=== PATIENT | male | born 1960 | race Caucasian/White ===

== ENCOUNTER 2018-10-09 00:57 | Outpatient (CLI) | payer MEDICAID, SELFPAY ==
--- NOTE | 2018-10-09 09:13 | DI.RAD_ITS ---
SYMPTOM/DIAGNOSIS: PAIN RT SHOULDER, M25.511 RIGHT SHOULDER: Five views were obtained. There are mild hypertrophic degenerative changes of the glenohumeral and acromioclavicular joints. There are soft tissue calcifications which appear to be associated with infraspinatus attachment on the humerus consistent with calcific peritendinitis. No other focal abnormality is seen.
== END 2018-10-09 01:17 ==
PROVIDERS: PCP Internal Medicine; Visit Provider Nurse Practitioner
DX: M25.511 Pain in right shoulder (principal); M19.011 Primary osteoarthritis, right shoulder
CPT/HCPCS: 73030

== ENCOUNTER 2018-11-13 08:46 | Outpatient (REF) | payer MEDICAID, SELFPAY ==
[2018-11-13 14:20] LABS: ALT 44 U/L (12-78); AST 23 U/L (15-37); Albumin 4.4 g/dL (3.4-5.0); Alkaline Phosphatase 80 U/L (46-116); Anion Gap 8.9 mmol/L (3-11); BUN 16 mg/dL (7-18); Bilirubin, Total 0.7 mg/dL (0.2-1.0); CO2 29.1 mmol/L (21.0-32.0); CREATININE 1.03 mg/dL (0.70-1.30); Calcium 9.8 mg/dL (8.5-10.1); Chloride 103 mmol/L (98-107); Cholesterol 213 mg/dL (50-200); Glucose 103 mg/dL (70-100); HDL Cholesterol 81 mg/dL (40-60); LDL CHOLESTEROL 113 mg/dL (<100); Potassium 4.9 mmol/L (3.5-5.1); Sodium 141 mmol/L (136-145); Total Protein 7.8 g/dL (6.4-8.2); Triglyceride 105 mg/dL (30-150)
== END 2018-11-13 09:06 ==
LOC: NCHCN 08:46
PROVIDERS: PCP Internal Medicine; Visit Provider Nurse Practitioner Family
DX: I10 Essential (primary) hypertension (principal); E78.5 Hyperlipidemia, unspecified
CPT/HCPCS: 80053; 80061; 83721

== ENCOUNTER 2018-12-14 11:01 | Outpatient (CLI) | payer MEDICAID, SELFPAY ==
--- NOTE | 2018-12-14 10:57 | DI.RAD_ITS ---
SYMPTOM/DIAGNOSIS: RT HEEL PAIN CALCANEUS: Two views. No priors. No acute or healing fracture, dislocation fracture seen. There is a tiny enthesophyte at the insertion site of the Achilles tendon. There is a tiny osteophyte at the plantar surface of the calcaneus. The bones are normally mineralized. The soft tissues are unremarkable. IMPRESSION: No acute abnormality.
== END 2018-12-14 11:21 ==
PROVIDERS: PCP Internal Medicine; Visit Provider Physician Assistant
DX: M79.671 Pain in right foot (principal); M77.31 Calcaneal spur, right foot
CPT/HCPCS: 73650

== ENCOUNTER 2020-01-14 11:15 | Outpatient (REF) | payer MEDICAID, SELFPAY ==
[2020-01-14 21:41] LABS: ALT 26 U/L (16-63); AST 26 U/L (15-37); Albumin 3.8 g/dL (3.4-5.0); Alkaline Phosphatase 67 U/L (46-116); Anion Gap 6.9 mmol/L (3-11); BUN 12 mg/dL (7-18); Bilirubin, Total 0.3 mg/dL (0.2-1.0); CO2 30.1 mmol/L (21.0-32.0); CREATININE 0.73 mg/dL (0.70-1.30); Calcium 9.2 mg/dL (8.5-10.1); Calculated LDL 129 mg/dL (<100); Chloride 102 mmol/L (98-107); Cholesterol 234 mg/dL (<200); Glucose 83 mg/dL (74-106); HDL Cholesterol 96 mg/dL (40-60); Potassium 4.2 mmol/L (3.5-5.1); Sodium 139 mmol/L (136-145); Total Protein 6.8 g/dL (6.4-8.2); Triglyceride 46 mg/dL (<150)
[2020-01-16 08:43] LABS: PSA, Screening <0.1 ng/mL (0.0-3.5)
== END 2020-01-14 11:35 ==
LOC: NCHCN 11:15
PROVIDERS: PCP Internal Medicine; Visit Provider Internal Medicine
DX: E78.5 Hyperlipidemia, unspecified (principal); I10 Essential (primary) hypertension; Z12.5 Encounter for screening for malignant neoplasm of prostate
CPT/HCPCS: 80053; 80061; 84153

== ENCOUNTER 2021-06-24 16:55 | Outpatient (REF) | payer MEDICAID, SELFPAY ==
[2021-06-24 22:37] LABS: ALT 38 U/L (16-63); AST 25 U/L (15-37); Albumin 3.9 g/dL (3.4-5.0); Alkaline Phosphatase 69 U/L (46-116); Anion Gap 9.3 mmol/L (3-11); BUN 17 mg/dL (7-18); Bilirubin, Total 0.4 mg/dL (0.2-1.0); CO2 26.7 mmol/L (21.0-32.0); Calcium 9.2 mg/dL (8.5-10.1); Chloride 105 mmol/L (98-107); Glucose 97 mg/dL (74-106); Sodium 141 mmol/L (136-145)
[2021-06-26 10:25] LABS: Hepatitis C Ab w Rflx HCV PCR Negative (Negative)
[2021-06-26 10:50] LABS: HIV-1/2 Ag & Ab Screen Negative (Negative)
== END 2021-06-24 16:56 | disposition home or self-care (01) ==
LOC: NCHCN 16:55
PROVIDERS: PCP Internal Medicine; Visit Provider Family Medicine
DX: Z11.4 Encounter for screening for human immunodeficiency virus [HIV] (principal); Z11.59 Encounter for screening for other viral diseases; I10 Essential (primary) hypertension; Z00.00 Encounter for general adult medical examination without abnormal findings
CPT/HCPCS: 80053; 86803; 87389

== ENCOUNTER 2021-07-22 03:02 | Outpatient (CLI) | payer MEDICAID, SELFPAY ==
[2021-07-22 12:16] LABS: Source Nasal/Nares
[2021-07-22 17:28] LABS: COVID-19 PCR Negative (Negative)
== END 2021-07-22 03:03 | disposition home or self-care (01) ==
LOC: LBO 03:02
PROVIDERS: PCP Internal Medicine; Visit Provider Ophthalmology
DX: Z20.822 Contact with and (suspected) exposure to COVID-19 (principal); Z01.818 Encounter for other preprocedural examination
CPT/HCPCS: 87635

== ENCOUNTER 2021-07-24 07:33 | Day surgery (SDC) | payer MEDICAID, SELFPAY ==
[2021-07-24 07:50] VITALS: BP 127/77; PULSE 63; RESP 16; TEMP 36.2; O2SAT 97
[2021-07-24] MEDS: Tropicam./Phenyleph. (1/2.5%) 5 ML BTL OS ×3 (08:08→08:20)
--- NOTE | 2021-07-24 08:36 | W.ANESPRE ---
General Info Date of Service Date Performed: 07/24/21 Height: 5 ft 7 in Weight: 97.1 kg Body Mass Index (BMI): 33.5 Surgical Procedure: Operation Date: 07/24/21 09:40 Proposed Procedures Side Surgeon p Cataract Extraction with IOL Implant Left Robin Collier MD Meds Allergies and Home Medications Allergies Allergy/AdvReac Type Severity Reaction Status Date / Time gabapentin Allergy Mild unknown Verified 07/24/21 08:12 Home Medication Medication Instructions Recorded lisinopril 10 mg PO HS 09/23/14 aspirin 81 mg tablet,delayed 81 mg PO DAILY 11/25/20 release psyllium seed (sugar) oral powder 1 tbsp PO DAILY PRN 11/25/20 rosuvastatin 20 mg tablet 20 mg PO DAILY 11/25/20 Current Visit Medications: Current Medications Generic Name Dose Route Start Last Admin Trade Name Freq PRN Reason Stop Dose Admin Acetaminophen 1,000 mg 07/24/21 06:00 Acetaminophen 500 Mg Tab PO Q4H PRN PRN Miscellaneous Medication 0 ml 07/24/21 06:00 Prednisolone 1%, Moxifloxacin 0.5%, Nepafenac 0.1% 5ml Btl OS DIRECTED MADHU Miscellaneous Medication 0 ml 07/24/21 06:00 07/24/21 08:20 Tropicam./Phenyleph. (1/2.5%) 5 Ml Btl OS 1 drp DIRECTED MADHU Administration Tetracaine HCl 0 ml 07/24/21 06:00 Tetracaine 0.5% 4 Ml Btl OS DIRECTED MADHU PFSH Active Problems Active Problems: Problem Status Onset Code Calcific tendonitis of right shoulder M75.31 Lateral epicondylitis, right elbow M77.11 Screening for colon cancer Z12.11 Anxiety F41.9 Hyperlipidemia E78.5 Medical History Medical History Alcohol abuse, in remission HTN (hypertension) Spondylolisthesis Stenosis, spinal, lumbar Surgical History Surgical History (Updated 07/24/21 @ 08:12 by Reena Anaya) Amputation revision (08/30/13) RMF, RRF Hx of spinal fusion Tobacco Smoking/Tobacco Use Status: Former Tobacco Use Alcohol Alcohol Intake: former Substance Use Substance use: Never Substance use type: does not use Vital Signs and Lab Results Vital Signs Most Recent Vital Signs in EMR: Most Recent Vital Signs Temp Pulse Resp BP Pulse Ox 36.2 C L 63 16 127/77 97 07/24/21 07:50 07/24/21 07:50 07/24/21 07:50 07/24/21 07:50 07/24/21 07:50 Lab Results Blood Type / Crossmatch: No Data to Display Complete Blood Count: No Data to Display Complete Metabolic Panel: Sodium Level 141 mmol/L (136-145) 06/24/21 16:25 06/24/21 Potassium Level 4.0 mmol/L (3.5-5.1) 06/24/21 16:25 06/24/21 Chloride Level 105 mmol/L (98-107) 06/24/21 16:25 06/24/21 Carbon Dioxide Level 26.7 mmol/L (21.0-32.0) 06/24/21 16:25 06/24/21 Blood Urea Nitrogen 17 mg/dL (7-18) 06/24/21 16:25 06/24/21 Creatinine 1.0 mg/dL (0.70-1.30) 06/24/21 16:25 06/24/21 Estimated GFR/1.73 m2 >= 60.00 (mL/min/1.73m2) 06/24/21 16:25 06/24/21 Calcium Level 9.2 mg/dL (8.5-10.1) 06/24/21 16:25 06/24/21 Albumin 3.9 g/dL (3.4-5.0) 06/24/21 16:25 06/24/21 Glucose Level 97 mg/dL (74-106) 06/24/21 16:25 06/24/21 Liver Function Panel: Alanine Aminotransferase (ALT/SGPT) 38 U/L (16-63) 06/24/21 16:25 06/24/21 Aspartate Amino Transf (AST/SGOT) 25 U/L (15-37) 06/24/21 16:25 06/24/21 Coagulation Panel: No Data to Display Cardiac Panel: No Data to Display Arterial Blood Gas: No Data to Display Venous Blood Gas: No Data to Display Pancreas Panel: No Data to Display Thyroid Panel: No Data to Display Infectious Disease: Coronavirus (COVID-19)(PCR) Negative (Negative) 07/22/21 09:30 07/22/21 Coronavirus 2019 Source Nasal/Nares 07/22/21 09:30 07/22/21 HIV (1&2) Ag and Ab, 4th Generation Negative (Negative) 06/24/21 16:25 06/24/21 Hepatitis C Antibody Negative (Negative) 06/24/21 16:25 06/24/21 Blood Cultures: No Data to Display Toxicology Panel: No Data to Display Anesthesia Assessment and Plan Anesthesia History Personal History: No History of Anesthesia Complications Family History: No Family History of Anesthesia Complications Exercise Tolerance Exercise Tolerance: Metabolic Equivalents>4 Pertinent Negatives Pertinent Negatives: No Symptoms of GERD Cardiac & Pulmonary Exam Cardiac Exam: Normal S1/S2 Heart Sounds Pulmonary Exam: Clear Bilateral Breath Sounds Implantable Cardiac Device Does patient have a Pacemaker or an ICD?: No Airway Exam Known Difficult Airway: No Mallampati Class: 2 Mouth Opening: Normal (> 3cm) Thyromental Distance: Greater than 3 cm Neck Range of Motion: Full ROM Neck Circumference: Normal Teeth Condition: Normal Dentition ASA Classification ASA Score: ASA 2 Emergency Case?: No NPO Status NPO Status: NPO Clears >2 hours, Solids >8 hours Anesthesia Plan Resuscitation Status: Full Code Anesthesia Technique: MAC Anesthesia Airway Planned: Natural Airway Monitors Used: Standard Monitors
[2021-07-24 09:00] VITALS: BMI 33.5
[2021-07-24] MEDS: Povidone-Iodine Ophth 30 ML BTL (09:16)
[2021-07-24] MEDS: Tetracaine 0.5% 4 ML BTL OS (09:17)
[2021-07-24] MEDS: Lidocaine 2% Jelly 6 ML SYR (09:18)
[2021-07-24] MEDS: Duovisc Viscoelastic System EACH 1 EACH (09:25)
[2021-07-24] MEDS: Balanced Salt Soln.-PLUS 500 ML BAG (09:25)
[2021-07-24] MEDS: Trypan Blue 0.06% 0.5 ML SYR (09:32)
[2021-07-24 09:50] VITALS: BP 136/69; PULSE 51; RESP 18; TEMP 36.3; O2SAT 98
--- NOTE | 2021-07-24 09:50 | W.PM.DSUDISC ---
Discharge Plan Disposition Patient Disposition: HOME Condition: Good Discharge Details Attending Provider: Robin Collier Primary Care Provider: Freddy Vazquez Home Meds and New Rx's Prescriptions: No Action aspirin [Adult Aspirin Regimen] 81 mg tablet,delayed release (DR/EC) 81 mg PO DAILY RF: 0 rosuvastatin 20 mg tablet 20 mg PO DAILY RF: 0 Metamucil (sugar) Powder 1 tbsp PO DAILY PRNRF: 0 lisinopril 10 MG tablet 10 mg PO HS RF: 0 Discharge Instructions Stand Alone Forms: Post-op Topical Cataract, Severino Holcomb (DSU) Discharge Orders Discharge Orders: Discharge Order (Routine); Ordered 07/24/21 Ordered By: Robin Collier DS: Diagnosis Discharge Diagnosis (1) Posterior subcapsular age-related cataract of left eye: Status: Resolved (2) Nuclear sclerotic cataract of left eye: Status: Resolved
--- NOTE | 2021-07-24 09:54 | W.PM.OP ---
Date of service: 07/24/21 Time of Service: 09:54 Operative Note Operative Note DATE OF PROCEDURE: 07/24/21 PRE-OP DIAGNOSIS: Nuclear/posterior subcapsular cataract, left eye For red reflex, left eye secondary to cataract POST-OP DIAGNOSIS: same PROCEDURE: Cataract extraction using phacoemulsification with intraocular lens implant, left eye, using capsular staining with Vision Blue SURGEON: Robin Collier ANESTHESIA TYPE: Local By Surgeon and MAC Refer to Anesthesia Record COMPLICATIONS: None Patient was transported to: same day Patient's condition: stable Implants: Anshu and Anshu / [employer] Tecnis [id number] Indications: Progressive decreased vision due to cataract, left eye, with poor red reflex Procedure Description: CATARACT SURGERY OPERATIVE REPORT PREOPERATIVE DIAGNOSIS: 1. Nuclear/posterior subcapsular cataract, left eye 2. Poor red reflex secondary to #1 POSTOPERATIVE DIAGNOSIS: Same OPERATION: 1. Cataract extraction using phacoemulsification with posterior chamber intraocular lens implant, left eye. 2. Capsular staining with Vision Blue IOL: IOL Manager Office Services/Model: Anshu & Anshu / VIOLET Tecnis [id number] IOL Power: + 20.5 diopters IOL Serial Number: [id number] Optic Diameter: 6.0 mm Haptic/Overall Diameter: 13.0 mm PHACO INFO: Javad Jaxtrurion Vision System with OZil and Active Fluidics Cumulative Dispersed Energy (CDE): 12.58 seconds SURGEON: Robin Collier MD, MICHAEL ANESTHESIA: Monitored A [facility] (MAC), with local sub-tenon's anesthetic infiltration COMPLICATIONS: None SPECIMENS: None INDICATIONS FOR PROCEDURE: The patient is a 61-year-old gentleman with history of progressive decreased vision in his left eye. He is noted to have a significant nuclear and posterior subcapsular cataract with visual acuity of 20/300. The option of cataract surgery was offered to the patient and he felt he was symptomatic enough that he wished to proceed. PROCEDURE: The correct surgical eye was identified and marked as the left eye and the pupil was dilated in the preoperative area using mydriatics and cycloplegics. The dilated pupil size was 7.0 mm. He elected to proceed without sedation. The patient was brought to the operating room where cardiopulmonary monitoring was instituted and surgical time-out was performed, confirming the correct operative eye and IOL power. Topical anesthesia was administered and ophthalmic povidone-iodine 5% was instilled into the conjunctival fornices. Lidocaine gel was applied to the cornea and the jen-ocular area was prepped with Betadine 10% solution and draped in the usual sterile fashion for intraocular surgery, including an aperture drape. A Tegaderm transparent film dressing was cut in half and used to cover the lashes and lid margins. Care was taken to sequester the lashes and lid margins under the Tegaderm dressing. A lid speculum was placed between the lids of the operative eye and the Vandana-Shirin operating microscope was maneuvered into position. Christa scissors were then used to make a conjunctival buttonhole approximately 6mm posterior to the limbus in the inferonasal quadrant. Blunt dissection was carried out to expose bare sclera, and a blunt-tipped sub-tenon?s anesthesia cannula was introduced and passed posteriorly along the globe where non-preserved plain lidocaine was injected into posterior sub-Tenon?s space. A sideport knife was used to make a paracentesis port superiorly/superiortemporally. Intraocular phenylephrine/lidocaine was injected int the anterior chamber.. Air was then injected into the anterior chamber, followed by Vision Blue, which was painted over the anterior capsule and then irrigated out using BSS. The anterior chamber was filled with viscoelastic. A 2.4mm keratome knife was used to create a half-thickness groove at the limbus and then to construct a three-plane near-clear corneal tunnel extending 2.0mm into clear cornea at the 3:00 position. A flap was raised on the anterior capsule and capsulorhexis forceps were used to complete a continuous curvilinear capsulorhexis of 4.8 mm. Balanced salt solution was then used to perform cortical cleaving hydrodissection and nuclear hydrodelineation until the lens could be freely rotated within the capsular bag. The lens nucleus was then disassembled and removed within the capsular bag and iris plane using phacoemulsification. Residual cortical material was removed using the 45-degree angled silicone I/A tip with 0.3mm port. The posterior capsule was carefully polished to remove as much residual lens epithelial cells as safely possible. The capsular bag was then inflated and the anterior chamber deepened with viscoelastic. The lens implant described above was inserted into the capsular bag using the VIOLET [place] Injector. A Kuglen hook was used to dial the IOL into position. Residual viscoelastic was then removed first from posterior to the IOL, then from the anterior chamber using the I/A handpiece. The lens implant was noted to center nicely within the capsular bag. The incisions were stromally hydrated, and the anterior chamber was reformed using BSS. Then 0.5cc of moxifloxacin 1.0mg/ml were injected into the capsular bag and anterior chamber. The incisions were checked with a Weck spear and found to be secure. Several drops of ophthalmic povidone-iodine 5% were then applied to the eye followed by two drops of Imprimis combination prednisolone/moxifloxacin/nepafenac solution. The drapes were removed and a clear plastic protective eye shield was placed over the eye. The patient was then returned to Same Day Surgery in stable condition.
--- NOTE | 2021-07-24 10:29 | W.ANESPOSTOP ---
Postoperative Evaluation Date, Time and Location Date Performed: 07/24/21 Time Performed: 10:00 Patient Location: Day Surgery Unit Vital Signs Most Recent Imported Vital Signs: Most Recent Vital Signs Temp Pulse Resp BP Pulse Ox 36.3 C L 51 L 18 136/69 98 07/24/21 09:50 07/24/21 09:50 07/24/21 09:50 07/24/21 09:50 07/24/21 09:50 Pain Score Most Recent Pain Score: Most Recent Pain Score Pain Level 0 07/24/21 09:50 Assessment Mental Status: Awake (Alert & Oriented to Patient Baseline) Airway and Respiratory Function: Patent airway with normal (patient baseline) respiratory exam Cardiovascular Function: Hemodynamically Stable Hydration Status: Adequately Hydrated Nausea & Vomiting: No Nausea or Vomiting Pain: Pt. Denies Any Pain Peripheral Nerve Block: Patient did not receive a nerve block
== END 2021-07-24 10:35 | disposition home or self-care (01) ==
PROVIDERS: PCP Internal Medicine; Visit Provider Ophthalmology
PROC: (CPT 66984; principal; 2021-07-24 09:30)
DX: H25.042 Posterior subcapsular polar age-related cataract, left eye (principal); I10 Essential (primary) hypertension; E78.5 Hyperlipidemia, unspecified; Z87.891 Personal history of nicotine dependence
CPT/HCPCS: 66984; V2632

== ENCOUNTER 2021-12-21 09:18 | Day surgery (SDC) | payer MEDICAID, SELFPAY ==
--- NOTE | 2021-12-21 06:50 | W.COLOREPORT ---
Colonoscopy Report Date of procedure: 12/21/21 Pre-op diagnosis general: Colon Cancer screening Post-op diagnosis procedure note: same Procedure: Colonoscopy Surgeon: Thelma Jackson Anesthesia Type: General:No Airway Estimated blood loss (mL): 0 Pathology: none sent Complications: None Disposition: same day Indications: The patient is here for Colonoscopy pre-op. His last screening was in 2010 and was unremarkable. He has no family history of colon cancer. He has not had any bowel habit changes. -Discussed colonoscopy bowel prep as well as the procedure. Discussed possible complications of the procedure to include bleeding, pain, perforation, missed small lesion/polyp, sore throat, aspiration and adverse reaction to the medications. Questions were answered to patient?s satisfaction. No guarantees were implied or given.? Prep: Miralax/Dulcolax Procedure Start Time: 10:23 Procedure End Time: 10:42 Retraction Time: 9 minutes Findings: Normal colonoscopy Procedure Description: After informed consent was obtained the patient was taken to the procedure room and placed in a left decubitous position. Monitors were applied and a time out was done. The patients name, date of , procedure, allergies to medications and metal in their body was reviewed. The patient was then sedated. Once sedated and comfortable a rectal exam was done. External exam was normal. Internal exam revealed a normal sphincter tone and no palpable masses. The prostate felt smooth. The scope was then introduced and retro-flexed. No internal hemorrhoids, polyps or masses were identified on retro-flexion. The scope was then advanced to the cecum without difficulty. The ileocecal vlave and appendiceal orifice were identified. The prep was adequate. The scope was then slowly retracted over 9 minutes back into the rectum. There were no polyps and there was no diverticulosis noted. The scope was removed and the patient was woken up and taken back to Same day surgery in stable condition. The patient tolerated the procedure well and there were no immediate complications. Follow up: The patient should follow up in 10 years unless they develop changes in bowel habits or other new gastrointestinal complaints.
--- NOTE | 2021-12-21 06:51 | W.PM.DSUDISC ---
Discharge Plan Disposition Patient Disposition: HOME Condition: Good Discharge Details Reason For Visit: Colonoscopy Attending Provider: Thelma Jackson Primary Care Provider: Freddy Vazquez Home Meds and New Rx's Prescriptions: Continued aspirin [Adult Aspirin Regimen] 81 mg tablet,delayed release (DR/EC) 81 mg PO DAILY rosuvastatin 20 mg tablet 20 mg PO DAILY Metamucil (sugar) Powder 1 tbsp PO DAILY PRN lisinopril 10 MG tablet 10 mg PO HS Discontinued bisacodyl [Dulcolax (bisacodyl)] 5 mg tablet,delayed release (DR/EC) 5 mg PO ONCE Qty: 4 0RF Rx Instructions: Take according to provider's instructions for colonoscopy prep. polyethylene glycol 3350 17 gram/dose powder 17 g PO ONCE Qty: 238 0RF Rx Instructions: To be taken as directed by prescriber's office for colonoscopy prep. Discharge Instructions Additional Instructions: Findings: Normal colonoscopy Follow up: 10 years Please call if you develop: fevers >101.5 Nausea or Vomiting Abdominal pain that is not transient Rectal bleeding that is more then a tbsp A hard abdomen and inability to pass gas DAY SURGERY UNIT POST ENDOSCOPY INSTRUCTIONS Instructions for everyone who is given Anesthesia: For your safety, please do the following for the next 24 Hours: a. Do not drive or operate dangerous equipment b. Do not drink alcohol beverages or use any recreational drugs for the first 24 hours or while taking pain medications. The medications in your body may have a reaction that can be dangerous. c. Do not make any important decisions or sign any important papers 1. Generally there are no restrictions on your activity after a day or so has gone by, but you may feel a bit fatigued for a few days. 2. After you arrive home you may have a light meal and return to a normal diet as you can tolerate it without feeling sick to your stomach. 3. After surgery, you may feel pain or discomfort. This should be only transient, but if it persists please contact your doctor. 4. If there are any questions regarding the findings of your procedure, please feel free to contact your doctor. 6. If you are unable to contact your doctor with a problem, contact the hospital at [phone]. 7. Continue all your regular medications unless directed otherwise. I understand the above instructions and have no questions. Signature of Patient or Responsible Adult Escort Date/Time Name of Responsible Adult Escort Signature of Nurse Date/Time Activity:: Activity as Tolerated Diet:: As Tolerated Discharge Orders Discharge Orders: Discharge Order (Routine); Ordered 12/21/21 Ordered By: Thelma Jackson
[2021-12-21 09:29] VITALS: BP 144/97; PULSE 74; RESP 18; TEMP 36.5; O2SAT 100
[2021-12-21] MEDS: Lactated Ringers 1,000 ML 80 ML IV (09:54)
--- NOTE | 2021-12-21 10:03 | ANES.PREOP_ITS ---
General Info Date of Service Date Performed: 12/21/21 Height: 5 ft 7 in Weight: 93.1 kg Body Mass Index (BMI): 32.1 Surgical Procedure: Operation Date: 12/21/21 10:20 Proposed Procedure Side Surgeon p Colonoscopy Thelma Jackson MD Pre-Op Diagnosis Post-Op Diagnosis Screening/Average Risk Meds Allergies and Home Medications Allergies Allergy/AdvReac Type Severity Reaction Status Date / Time gabapentin AdvReac Mild pt states Verified 12/21/21 09:50 it made him depressed Home Medication Medication Instructions Recorded lisinopril 10 mg tablet 10 mg PO HS 09/23/14 aspirin 81 mg tablet,delayed 81 mg PO DAILY 11/25/20 release (Adult Aspirin Regimen) psyllium seed (sugar) oral powder 1 tbsp PO DAILY PRN 11/25/20 (Metamucil (sugar) oral powder) rosuvastatin 20 mg tablet 20 mg PO DAILY 11/25/20 bisacodyl 5 mg tablet,delayed 5 mg PO ONCE #4 tabs 12/11/21 release (Dulcolax (bisacodyl)) polyethylene glycol 3350 17 17 g PO ONCE #238 grams 12/11/21 gram/dose oral powder Current Visit Medications: Current Medications Generic Name Dose Route Start Last Admin Trade Name Freq PRN Reason Stop Dose Admin Hyoscyamine Sulfate 0.125 mg 12/21/21 06:52 Hyoscyamine 0.125 Mg Sl/Oral/Chew SL DIRECTED PRN Ringer's Solution 1,000 mls @ 80 mls/hr 12/21/21 06:00 12/21/21 09:54 IV 01/17/22 23:59 80 mls/hr INFUSION MADHU Administration IV Miscellaneous Supplies 1 each 12/21/21 06:00 Iv Access IV 01/17/22 23:59 DIRECTED MADHU Ondansetron HCl 4 mg 12/21/21 06:52 Ondansetron 4 Mg/2 Ml Vial IVP Q4H PRN PRN Nausea / Vomiting Sodium Chloride 0 ml 12/21/21 06:00 Normal Saline Flush 10 Ml Syr IV 01/17/22 23:59 PRN PRN Sodium Chloride 0 ml 12/21/21 06:00 Normal Saline 10 Ml Vial IJ 01/17/22 23:59 DIRECTED PRN Sterile Water 0 ml 12/21/21 06:00 Water,Injection,Sterile 10 Ml Vial IJ 01/17/22 23:59 DIRECTED PRN [facility] Active Problems Active Problems: Problem Status Onset Code Screening for colon cancer Z12.11 Medical History Medical History Alcohol abuse, in remission Anxiety Calcific tendonitis of right shoulder Injected: 12/14/2018 HTN (hypertension) Hyperlipidemia Lateral epicondylitis, right elbow Spondylolisthesis Stenosis, spinal, lumbar Surgical History Surgical History Amputation revision (08/30/13) RMF, RRF Hx of spinal fusion Nuclear sclerotic cataract of left eye Posterior subcapsular age-related cataract of left eye Tobacco Smoking/Tobacco Use Status: Former Tobacco Use Alcohol Alcohol Intake: current Alcohol intake frequency: a few times a month Alcohol type: beer Substance Use Substance use: Never Substance use type: does not use Vital Signs and Lab Results Vital Signs Most Recent Vital Signs in EMR: Most Recent Vital Signs Temp Pulse Resp BP Pulse Ox 36.5 C 74 18 144/97 H 100 12/21/21 09:29 12/21/21 09:29 12/21/21 09:29 12/21/21 09:29 12/21/21 09:29 Lab Results Blood Type / Crossmatch: No Data to Display Complete Blood Count: No Data to Display Complete Metabolic Panel: No Data to Display Liver Function Panel: No Data to Display Coagulation Panel: No Data to Display Cardiac Panel: No Data to Display Arterial Blood Gas: No Data to Display Venous Blood Gas: No Data to Display Pancreas Panel: No Data to Display Thyroid Panel: No Data to Display Infectious Disease: No Data to Display Blood Cultures: No Data to Display Toxicology Panel: No Data to Display Imaging and Studies Imaging and Studies Study information below may be from another EMR and interpreted by another provider. Please see original notes in EMR for more complete details. Stress Test Summary: EKG CHANGES: [address] depression leads V3-V6, prompt resolution in recovery. IMPRESSION: High blood pressure response, hypertensive with exercise, systolic blood pressure 214 mmHg. Functional capacity is average. CONCLUSION: Negative ischemia. Anesthesia Assessment and Plan Anesthesia History Personal History: No History of Anesthesia Complications Family History: No Family History of Anesthesia Complications Exercise Tolerance Exercise Tolerance: Metabolic Equivalents>4 Pertinent Negatives Pertinent Negatives: No Symptoms of GERD and No Major Pulmonary Symptoms or Complaints Cardiac & Pulmonary Exam Cardiac Exam: Normal S1/S2 Heart Sounds Pulmonary Exam: Clear Bilateral Breath Sounds Implantable Cardiac Device Does patient have a Pacemaker or an ICD?: No Airway Exam Known Difficult Airway: No Mallampati Class: 2 Mouth Opening: Normal (> 3cm) Thyromental Distance: Greater than 3 cm Neck Range of Motion: Full ROM Neck Circumference: Normal Teeth Condition: Normal Dentition ASA Classification ASA Score: ASA 2 Emergency Case?: No NPO Status NPO Status: NPO Clears >2 hours, Solids >8 hours Anesthesia Plan Resuscitation Status: Full Code Anesthesia Technique: General Anesthesia Airway Planned: Natural Airway Monitors Used: Standard Monitors
[2021-12-21 10:06] VITALS: BMI 32.1
[2021-12-21 10:47] VITALS: BP 143/72; PULSE 75; RESP 17; TEMP 36.2; O2SAT 98
[2021-12-21 11:06] VITALS: BP 129/92; PULSE 76; RESP 18; TEMP 36.6; O2SAT 98
--- NOTE | 2021-12-21 11:14 | W.ANESPOSTOP ---
Postoperative Evaluation Date, Time and Location Date Performed: 12/21/21 Time Performed: 11:14 Patient Location: Day Surgery Unit Vital Signs Most Recent Imported Vital Signs: Most Recent Vital Signs Temp Pulse Resp BP Pulse Ox 36.6 C 76 18 129/92 H 98 12/21/21 11:06 12/21/21 11:06 12/21/21 11:06 12/21/21 11:06 12/21/21 11:06 Pain Score Most Recent Pain Score: Most Recent Pain Score Pain Level 0 12/21/21 11:06 Assessment Mental Status: Awake (Alert & Oriented to Patient Baseline) Airway and Respiratory Function: Patent airway with normal (patient baseline) respiratory exam Cardiovascular Function: Hemodynamically Stable Hydration Status: Adequately Hydrated Nausea & Vomiting: No Nausea or Vomiting Pain: Pt. Denies Any Pain Peripheral Nerve Block: Patient did not receive a nerve block
== END 2021-12-21 11:25 | disposition home or self-care (01) ==
PROVIDERS: PCP Internal Medicine; Visit Provider Surgery
PROC: 0DJD8ZZ Inspection of Lower Intestinal Tract, Via Natural or Artificial Opening Endoscopic (ICD-10-PCS; CPT 45378; principal; 2021-12-21 10:15)
DX: Z12.11 Encounter for screening for malignant neoplasm of colon (principal); E78.5 Hyperlipidemia, unspecified; I10 Essential (primary) hypertension; Z87.891 Personal history of nicotine dependence
CPT/HCPCS: 45378

== ENCOUNTER 2022-08-09 11:55 | Outpatient (REF) | payer MEDICAID, SELFPAY ==
[2022-08-09 14:33] LABS: Abs Immature Grans 0.02 10^3/uL (0.0-0.06); Absolute Basophil Count 0.05 10^3/uL (0.0-0.2); Absolute Eosinophil Count 0.26 10^3/uL (0.0-0.7); Absolute Lymphocyte Count 2.46 10^3/uL (1.2-3.4); Absolute Monocyte Count 0.66 10^3/uL (0.1-0.8); Absolute Neutrophil Count 4.19 10^3/uL (1.2-6.7); Basophils % 0.7; Eosinophils % 3.4; HCT 41.4 % (40.0-50.0); HGB 13.5 g/dL (13.5-17.5); Immature Grans % 0.3; Lymphocytes % 32.2; MCH 29.6 pg (27.0-33.0); MCHC 32.6 % (32.0-36.0); MCV 91 fL (80-95); MPV 10.1 fL (8.0-11.0); Monocytes % 8.6; Neutrophils % 54.8; Platelet Count 334 10^3/uL (130-400); RBC 4.56 10^6/uL (4.36-5.78); RDW-SD 49.8 fL; WBC 7.64 10^3/uL (4.4-10.8)
[2022-08-09 14:44] LABS: Calculated LDL 202 mg/dL (<100); Cholesterol 308 mg/dL (<200); HDL Cholesterol 96 mg/dL (40-60); Triglyceride 53 mg/dL (<150)
[2022-08-10 01:14] LABS: ALT 34 U/L (16-63); AST 25 U/L (15-37); Albumin 4.2 g/dL (3.4-5.0); Alkaline Phosphatase 98 U/L (46-116); Anion Gap 8.9 mmol/L (3-11); BUN 16 mg/dL (7-18); Bilirubin, Total 0.5 mg/dL (0.2-1.0); CO2 27.1 mmol/L (21.0-32.0); Calcium 9.5 mg/dL (8.5-10.1); Chloride 105 mmol/L (98-107); Glucose 107 mg/dL (74-106); Sodium 141 mmol/L (136-145); Total Protein 7.4 g/dL (6.4-8.2)
== END 2022-08-09 11:56 | disposition home or self-care (01) ==
LOC: NCHCN 11:55
PROVIDERS: PCP Internal Medicine; Visit Provider Family Medicine
DX: I10 Essential (primary) hypertension (principal); E78.5 Hyperlipidemia, unspecified
CPT/HCPCS: 80053; 80061; 85025

== ENCOUNTER → 2023-05-16 00:46 | Outpatient (CLI) | payer MEDICAID, SELFPAY ==
--- NOTE | 2023-05-16 | DI.RAD_ITS ---
Exam(s) XR HIP PELVIS ADULT BL EXAM: XR HIP PELVIS ADULT BL CLINICAL HISTORY: HIP PAIN,[id number]. TECHNIQUE: 2D digital imaging was performed of the pelvis and bilateral hips. Three images were obt ained. AP pelvis and lateral views of both hips were obtained. COMPARISON: No exams were available for comparison FINDINGS: BONES: No acute fracture is present. No bony destructive lesion is seen. JOINTS: No dislocation present. Mild degenerative changes are seen in the hips bilaterally characteri zed by joint space narrowing and acetabular osteophytes. Postsurgical changes are seen at the L4-5 l evel in the lumbar spine. The sacroiliac joints and symphysis pubis are unremarkable. SOFT TISSUE: Normal. 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 DATA REPOSITORY: RADIATION DOSE DELIVERED:
== END ==
PROVIDERS: PCP Internal Medicine; Visit Provider Family Medicine
DX: M16.0 Bilateral primary osteoarthritis of hip (principal)
CPT/HCPCS: 73521

== ENCOUNTER 2023-09-06 13:45 | Outpatient (REF) | payer MEDICAID, SELFPAY ==
[2023-09-06 17:09] LABS: ALT 47 U/L (16-63); AST 24 U/L (15-37); Albumin 4.4 g/dL (3.4-5.0); Alkaline Phosphatase 68 U/L (46-116); Anion Gap 11.1 mmol/L (3-11); BUN 15 mg/dL (7-18); Bilirubin, Total 0.4 mg/dL (0.2-1.0); CO2 26.9 mmol/L (21.0-32.0); CREATININE 0.9 mg/dL (0.70-1.30); Calcium 9.7 mg/dL (8.5-10.1); Chloride 103 mmol/L (98-107); Estimated GFR 95.97 (mL/min/1.73m2); Glucose 96 mg/dL (74-106); LDL CHOLESTEROL 118 mg/dL (<100); Potassium 4.3 mmol/L (3.5-5.1); Sodium 141 mmol/L (136-145); Total Protein 7.6 g/dL (6.4-8.2)
== END 2023-09-06 13:46 | disposition home or self-care (01) ==
LOC: NCHCN 13:45
PROVIDERS: PCP Internal Medicine; Visit Provider Family Medicine
DX: I10 Essential (primary) hypertension (principal); E78.5 Hyperlipidemia, unspecified
CPT/HCPCS: 80053; 83721